=== PATIENT | female | born 1980 | race Caucasian/White ===

== ENCOUNTER 2023-12-12 13:33 | Emergency (ER) | payer BC ==
[~2023-12-12] VITALS: Ht 165.1 cm; Wt 71.2 kg
[2023-12-12] MEDS ORDERED: IBUPROFEN 600 MG TABLET ONE (14:26)
[2023-12-12] MEDS ORDERED: TDAP [DIPH/PERTUSSIS/TET] 0.5 ML VIAL IM ONE (14:26)
[2023-12-12] MEDS: IBUPROFEN 600 MG TABLET PO ONE (14:34)
[2023-12-12] MEDS: TDAP [DIPH/PERTUSSIS/TET] 0.5 ML VIAL IM ONE (14:34)
[2023-12-12 17:30] VITALS: BP 136/69; TEMP 98.2; O2SAT 97
== END 2023-12-12 17:30 | disposition home or self-care (01) ==
LOC: ER 13:33
DX: S91.114A Laceration without foreign body of right lesser toe(s) without damage to nail, initial encounter (principal); F32.A Depression, unspecified; F41.9 Anxiety disorder, unspecified; W25.XXXA Contact with sharp glass, initial encounter; Y93.89 Activity, other specified; Y92.89 Other specified places as the place of occurrence of the external cause; Y99.8 Other external cause status
CPT/HCPCS: 73630-TC; 90715